=== PATIENT | male | born 1955 | race Caucasian/White ===

== ENCOUNTER 2020-06-14 19:57 | Emergency (ER) | payer MEDICARE, SELFPAY ==
[2020-06-14] VITALS (40 sets, daily range): BP systolic 92–137; BP diastolic 55–92; PULSE 93–127; RESP 12–19; TEMP 35.3–35.7; O2SAT 95–100
--- NOTE | 2020-06-14 19:59 | DI.RAD.S_ITS ---
PROCEDURE: XR CHEST 1V INDICATIONS: fall, trauma, preop TECHNIQUE: One view of the chest was acquired. COMPARISON: None. FINDINGS: Surgical changes and devices: ETT tip is within proximal right mainstem bronchus, should be pulled back by 9 cm. Enteric tube tip is below the left hemidiaphragm and is in the region of stomach lumen. Postsurgical changes are seen in right hilar region. Lungs and pleura: Large airspace opacity projecting over left upper to midlung zone is seen measures 15 x 12 cm in size which could represent large anterior chest wall hematoma versus large left lung mass. No pleural effusion. No obvious pneumothorax. Mediastinum: Mediastinal contours appear normal. Heart size is normal. Bones and chest wall: No suspicious bony lesions. Overlying soft tissues appear unremarkable. IMPRESSION: 1. ET tube tip appears to be within the right mainstem bronchus, should be pulled back by 9 cm. Postsurgical changes seen in right hilar region. 2. Large oval opacity projecting over left upper to mid lung field concerning for large left lung mass versus lesion anterior to left chest wall, suggest clinical correlation. 3. No gross pneumothorax. No pleural effusion. Dictated by: Prabhakar Hill M.D. on 06/14/2020 at 20:41 Approved by: Prabhakar Hill M.D. on 06/14/2020 at 20:46
[2020-06-14 20:18] LABS: Fractionated Inspired Oxygen 100; HCO3 ABG 10 mmol/L (22-26); Oxygen Saturation ABG 100 % (95-100); PCO2 ABG 36.7 mmHg (35-45); TCO2 ABG 11 mmol/L (21-31)
[2020-06-14 20:19] LABS: PO2 ABG 520 mmHg (80-100); pH ABG 7.04 (7.35-7.45)
[2020-06-14 20:30] LABS: Hematocrit 25.9 % (41-53); Mean Corpuscular HGB Conc 30.8 % (30-36); Mean Corpuscular Hemoglobin 31.2 PG (26-34); Mean Corpuscular Volume 101.1 fL (80-100); Platelet Count 400 X10^3/uL (150-400); Red Blood Cell Count 2.56 X10^6/uL (4.5-5.9); Red Cell Distribution Width 17.9 % (11.6-14.8); White Blood Cell Count 26.5 X10^3/uL (4.5-11.0)
[2020-06-14 20:31] LABS: Add Manual Diff / Slide Review YES
[2020-06-14] MEDS: SODIUM CHLORIDE 0.9% 1,000 ML 1000 ML IV (20:36)
--- NOTE | 2020-06-14 20:37 | PC.NURSE ---
OGT placed with return of small amt (<100 mls) dark red secretions, suspicious for GIB. Dr Villatoro made aware
[2020-06-14 20:40] LABS: Creatine Kinase 138 U/L (55-170)
[2020-06-14 20:44] LABS: Appearance Urine UA CLOUDY; Bilirubin Urine UA 2+ (NEGATIVE); Color Urine UA ORANGE; Glucose Urine UA TRACE g/dL (Negative); Ketones Urine UA TRACE (NEGATIVE); Leukocyte Esterase Urine UA TRACE (NEGATIVE); Nitrite Urine UA POSITIVE (Negative); Occult Blood Urine UA TRACE-LYSED (Negative); Protein Urine UA 1+ (Negative); Specific Gravity Urine UA 1.025 (1.000-1.035); Urobilinogen Urine UA >=8.0 E.U./dL (0.2)
[2020-06-14 20:52] LABS: Ictotest Urine Positive (Negative)
[2020-06-14 20:53] LABS: Troponin I 0.023 ng/mL (0.01-0.034)
[2020-06-14 20:55] LABS: Albumin Globulin Ratio 0.9 (1.0-2.8); Alkaline Phosphatase 348 U/L (38-126); Aspartate Aminotransferase 287 IU/L (17-59); BUN Creatinine Ratio 31.3 (6-22); Bilirubin Total 5.1 mg/dL (0.2-1.3); Blood Urea Nitrogen 41 mg/dL (9-20); Calcium 8.5 mg/dL (8.4-10.2); Carbon Dioxide 11 mmol/L (22-32); Chloride 98 mmol/L (98-107); Estimated Glomerular Filt Rate 55.3 mL/min (>60); Globulin 3.3 g/dL (1.7-4.1); Glucose 113 mg/dL (80-110); HEMOLYSIS < 15 (0-50); Lipase 297 U/L (23-300); Sodium 132 mmol/L (137-145); Total Protein 6.3 g/dL (6.3-8.2)
[2020-06-14 20:56] LABS: CKMB % Relative Index 0.6 % (1.5-5.0); Creatine Kinase MB 0.82 ng/mL (<2.37)
[2020-06-14 20:57] LABS: Amorphous Sediment Urine 3+; Bacteria Urine Few (2-10); RBC Urine 0-1/HPF (0-5/HPF); Squamous Epithelial Cell Urine 0-1 /HPF (0-5/HPF); WBC Urine 1-5/HPF (0-5/HPF)
[2020-06-14 20:58] LABS: Culture Indicated Urine Specimen Cultured; Mucus Urine 1+ (Negative)
[2020-06-14 20:58] LABS: Potassium 5.6 mmol/L (3.4-5.1)
[2020-06-14 21:01] LABS: Alanine Aminotransferase 57 IU/L (<50)
[2020-06-14 21:03] LABS: NT-proBNP (BNP-Adult 18+) 1770 pg/mL (<125)
[2020-06-14 21:10] LABS: COVID19 -Nasal RAPID Negative (Negative)
[2020-06-14 21:13] LABS: Neutrophils Absolute Manual 21200 /uL (3000-5900); Total Cells Counted 100
[2020-06-14 21:17] LABS: Hypochromasia 2+; Macrocytosis 2+; Polychromasia 2+
--- NOTE | 2020-06-14 21:25 | ED_ITS ---
HPI - Altered Mental Status General Chief Complaint: Weakness Stated Complaint: Altered mental status Time Seen by Provider: 06/14/20 19:57 Source: EMS Mode of arrival: EMS Limitations: no limitations History of Present Illness HPI narrative: 65-year-old male former smoker and heavy drinker with history of lung cancer presents with EMS intubated. He is largely estranged from family, but a drinking ranjan called his daughter 2 days stating that he was acting a bit hot at the local social club. Daughter arrived to find him disheveled and house poorly maintained. She states that he had clearly lost weight and seemed profoundly weak. She encouraged him to take a shower and soon afterwards he collapsed. EMS was called and patient was alert oriented on their arrival and as they loaded him into the ambulance complained of increasing dizziness, lightheadedness and trouble breathing. He was intubated due to hypoxemic respiratory failure. He does not have a known or documented history of liver failure, cirrhosis or GI bleed but family reports a strong history of alcohol abuse. Related Data Home Medications Medication Instructions Recorded Confirmed Unobtainable 06/14/20 06/14/20 Allergies Allergy/AdvReac Type Severity Reaction Status Date / Time No Allergy Information Allergy Verified 06/14/20 20:33 Available Review of Systems Review of Systems ROS Unobtainable: Unobtainable due to mental status/LOC Patient History Social History Smoking Status: Former smoker Smoking Status: Former smoker alcohol intake frequency: 3 or more drinks per day Substance Use Type: does not use Exam Narrative Exam Narrative: GENERAL: [65] year old patient appears older than stated age. Intubated, jaundiced, appears profoundly ill HEAD: Atraumatic. Normocephalic. EYES: Scleral icterus Pupils equal round and reactive. Extraocular motions intact. ENT: Nose without bleeding, purulent drainage. Throat without erythema, tonsillar hypertrophy or exudate. Airway patent. NECK: Trachea midline. Non tender CARDIOVASCULAR: Regular rate and rhythm without murmurs, gallops, or rubs. RESPIRATORY: Clear to auscultation. Breath sounds equal bilaterally. No wheezes, rales, or rhonchi. GASTROINTESTINAL: Abdomen soft, non-tender, nondistended. EXTREMITIES: No edema or joint tenderness. BACK: Nontender without deformity or crepitance. No flank tenderness. NEURO: Sedated on vent. SKIN: No rash or erythema of visible areas Initial Vital Signs Initial Vital Signs: Vital Signs Temperature 96.3 F L 06/14/20 19:58 Pulse Rate 127 H 06/14/20 19:58 Respiratory Rate 12 06/14/20 19:58 Blood Pressure 137/92 H 06/14/20 19:58 Pulse Oximetry 100 06/14/20 19:58 Course Orders Ordered: ED Orders 06/14/20 19:58 COVID19 -Nasal swab/Pre-Proc Stat 06/14/20 19:59 XR chest 1V Stat EKG-12 Lead Stat 06/14/20 20:09 Arterial Blood Gas Stat 06/14/20 20:15 Complete Blood Count AUTO DIFF Stat Pathologist Review (for CBC) Stat 06/14/20 20:19 Comprehensive Metabolic Panel Stat Lipase Stat Magnesium Stat NT-proBNP (BNP-Adult 18+) Stat Troponin & CK Cardiac Panel Stat 06/14/20 20:20 Ictotest Urine Stat Urinalysis and Microscopic Stat Urine Culture Stat 06/14/20 20:40 COVID19 - ADMIT ([employer] swab/PCR) Stat 06/14/20 21:23 XR chest 1V Stat 06/14/20 21:45 Lactate (Lactic Acid) Stat Packed Cells Stat Type and Screen Stat 06/14/20 22:05 Prothrombin Time INR Stat 06/14/20 22:40 Hematocrit Stat Hemoglobin Stat 06/14/20 23:17 CT chest abd pel w con Stat CT head/brain wo con Stat 06/14/20 23:40 Blood Culture Stat Pantoprazole Sodium 80 mg/ (Sodium Chloride) 100 mls @ 10 mls/hr IV CONT PJ Last Admin: 06/14/20 22:34 Dose: 8 mg/hr, 10 mls/hr Documented by: RANI Octreotide Acetate 500 mcg/ (Sodium Chloride) 101 mls @ 5.05 mls/hr IV CONT PJ; Protocol Last Admin: 06/14/20 22:34 Dose: 25 mcg/hr, 5.05 mls/hr Documented by: RANI Discontinued Medications Sodium Chloride (Normal Saline 0.9%) 1,000 mls @ 1,000 mls/hr IV BOLUS ONE Stop: 06/14/20 20:57 Last Infusion: 06/15/20 00:53 Dose: 0 mls/hr Documented by: Admin: 06/14/20 20:36 Dose: 1,000 mls/hr Documented by: RANI Ceftriaxone Sodium/Dextrose (Rocephin) 2 gm in 50 mls @ 100 mls/hr IV NOW ONE Stop: 06/14/20 22:43 Last Infusion: 06/14/20 23:27 Dose: 0 mls/hr Documented by: Admin: 06/14/20 22:33 Dose: 100 mls/hr Documented by: RANI Octreotide Acetate (Octreotide 100 Mcg/Ml Vial) 50 mcg IV NOW ONE Stop: 06/14/20 22:15 Last Admin: 06/14/20 22:23 Dose: 50 mcg Documented by: RANI Pantoprazole Sodium (Pantoprazole 40 Mg Vial) 80 mg IV NOW ONE Stop: 06/14/20 22:15 Last Admin: 06/14/20 22:24 Dose: 80 mg Documented by: RANI Reevaluation(s) Reevaluation #1: Patient continues to be hemodynamically stable, OG placed and dark blood, and small volumes but consistent with upper GI bleed. Patient still requiring no sedation Consultations Consultation #1: First call to [facility], no appropriate beds Consultation #2: call to [facility], Dr. Koroma happy to accept. We agree that advanced imaging is highly unlikely to contribute information which will change the plan. EMS to arrive at about 0130. Vital Signs Vital signs: Vital Signs - 8 hr 06/14/20 19:58 06/14/20 20:01 06/14/20 20:05 Temperature 96.3 F L Pulse Rate 127 H 112 H 109 H Respiratory Rate 12 17 Blood Pressure 137/92 H 137/92 H Pulse Oximetry 100 98 06/14/20 20:10 06/14/20 20:15 06/14/20 20:17 Temperature Pulse Rate 109 H 109 H 109 H Respiratory Rate 16 16 16 Blood Pressure 125/80 Pulse Oximetry 100 100 97 06/14/20 20:20 06/14/20 20:25 06/14/20 20:30 Temperature 95.5 F L 95.7 F L Pulse Rate 110 H 107 H 105 H Respiratory Rate 16 17 16 Blood Pressure 132/85 136/90 133/86 Pulse Oximetry 98 97 97 06/14/20 20:35 06/14/20 20:40 06/14/20 20:45 Temperature 96.1 F L 96.1 F L 96.3 F L Pulse Rate 105 H 105 H 104 H Respiratory Rate 16 16 16 Blood Pressure 125/84 127/82 137/76 Pulse Oximetry 97 97 97 06/14/20 20:50 06/14/20 22:05 06/14/20 22:10 Temperature 96.3 F L 95.9 F L Pulse Rate 104 H 102 H Respiratory Rate 16 19 Blood Pressure 125/86 112/75 116/80 Pulse Oximetry 96 97 06/14/20 22:15 06/14/20 22:20 06/14/20 22:25 Temperature 95.9 F L 95.9 F L 96.1 F L Pulse Rate 102 H 101 H 101 H Respiratory Rate 16 16 16 Blood Pressure 116/71 113/66 Pulse Oximetry 98 98 97 06/14/20 22:26 06/14/20 22:30 06/14/20 22:35 Temperature Pulse Rate 100 H 100 H 100 H Respiratory Rate 16 17 Blood Pressure 123/58 L 128/58 L Pulse Oximetry 97 97 98 06/14/20 22:37 06/14/20 22:40 06/14/20 22:45 Temperature Pulse Rate 97 H 96 H 98 H Respiratory Rate 16 Blood Pressure 109/70 108/68 111/62 Pulse Oximetry 98 97 97 06/14/20 22:50 06/14/20 22:55 06/14/20 23:00 Temperature 95.9 F L Pulse Rate 98 H 99 H 99 H Respiratory Rate 16 16 16 Blood Pressure 108/69 109/67 109/75 Pulse Oximetry 97 97 97 06/14/20 23:05 06/14/20 23:10 06/14/20 23:15 Temperature Pulse Rate 99 H 98 H 97 H Respiratory Rate 16 16 12 Blood Pressure 107/70 115/69 113/68 Pulse Oximetry 97 96 97 06/14/20 23:20 06/14/20 23:25 06/14/20 23:30 Temperature Pulse Rate 97 H 98 H 97 H Respiratory Rate 16 16 16 Blood Pressure 100/66 106/56 L 106/60 Pulse Oximetry 97 97 97 06/14/20 23:35 06/14/20 23:40 06/14/20 23:45 Temperature 96.3 F L Pulse Rate 97 H 97 H 97 H Respiratory Rate 13 16 16 Blood Pressure 106/61 99/55 L 92/68 Pulse Oximetry 96 96 06/14/20 23:50 06/14/20 23:52 06/14/20 23:55 Temperature 96.3 F L Pulse Rate 97 H 97 H 97 H Respiratory Rate 16 16 16 Blood Pressure 97/64 105/68 Pulse Oximetry 95 96 97 06/15/20 00:00 06/15/20 00:05 06/15/20 00:09 Temperature 96.4 F L Pulse Rate 97 H 97 H 97 H Respiratory Rate 16 16 16 Blood Pressure 101/71 98/67 104/73 Pulse Oximetry 97 97 06/15/20 00:10 06/15/20 00:15 06/15/20 00:20 Temperature Pulse Rate 97 H 97 H 97 H Respiratory Rate 16 16 16 Blood Pressure 104/73 101/69 103/64 Pulse Oximetry 97 97 97 06/15/20 00:25 06/15/20 00:30 06/15/20 00:35 Temperature Pulse Rate 97 H 97 H 97 H Respiratory Rate 16 16 16 Blood Pressure 100/60 104/57 L 109/55 L Pulse Oximetry 97 97 97 06/15/20 00:40 06/15/20 00:45 06/15/20 00:50 Temperature Pulse Rate 96 H 96 H 96 H Respiratory Rate 16 16 16 Blood Pressure 112/58 L 121/62 Pulse Oximetry 97 97 97 06/15/20 00:55 06/15/20 01:12 06/15/20 01:14 Temperature 96.6 F L 96.6 F L Pulse Rate 96 H 96 H 96 H Respiratory Rate 16 16 Blood Pressure 119/61 Pulse Oximetry 97 MDM - Altered Mental Status Lab Data Result diagrams: 06/14/20 20:15 06/14/20 20:19 Labs: Lab Results 06/14/20 06/14/20 06/14/20 Range/Units 19:58 20:09 20:15 WBC 26.5 H (4.5-11.0) X10^3/uL RBC 2.56 L (4.5-5.9) X10^6/uL Hgb 8.0 L (13.5-17.5) g/dL Hct 25.9 L (41-53) % MCV 101.1 H (80-100) fL MCH 31.2 (26-34) PG MCHC 30.8 (30-36) % RDW 17.9 H (11.6-14.8) % Plt Count 400 (150-400) X10^3/uL Neut % (Auto) Not Reportable Lymph % (Auto) Not Reportable [place] % (Auto) Not Reportable Eos % (Auto) Not Reportable Baso % (Auto) Not Reportable Lymph # (Auto) Not Reportable [place] # (Auto) Not Reportable Baso # (Auto) Not Reportable Total Counted 100 Seg Neutrophils % 72.0 H (38-70) % Band Neutrophils % 8.0 H (3-7) % Lymphocytes % (Manual) 7.0 L (25-45) % Monocytes % (Manual) 7.0 (2-11) % Metamyelocytes % 4.0 H (-0) % Myelocytes % 2.0 H (-0) % Neutrophils # (Manual) 38453 H (0416-6444) /uL RBC Morphology See below Polychromasia 2+ H Hypochromasia 2+ H Macrocytosis 2+ H PT (10.1-12.7) SECONDS INR (0.9-1.3) ABG pH 7.04 L* (7.35-7.45) ABG pCO2 36.7 (35-45) mmHg ABG pO2 520 H* (80-100) mmHg ABG HCO3 10 L (22-26) mmol/L ABG Total CO2 11 L (21-31) mmol/L ABG O2 Saturation 100 (95-100) % ABG Base Excess -21.0 L (-2-2) mmol/L FiO2 100 Sodium (137-145) mmol/L Potassium (3.4-5.1) mmol/L Chloride (98-107) mmol/L Carbon Dioxide (22-32) mmol/L BUN (9-20) mg/dL Creatinine (0.66-1.25) mg/dL Estimated GFR (>60) mL/min BUN/Creatinine Ratio (6-22) Glucose (80-110) mg/dL Lactate (0.7-2.1) mmol/L Calcium (8.4-10.2) mg/dL Magnesium (1.6-2.3) mg/dL Total Bilirubin (0.2-1.3) mg/dL AST (17-59) IU/L ALT (<50) IU/L Alkaline Phosphatase (38-126) U/L Total Creatine Kinase (55-170) U/L CK-MB (CK-2) (<2.37) ng/mL CK-MB (CK-2) Rel Index (1.5-5.0) % Troponin I (0.01-0.034) ng/mL NT-Pro-B Natriuret Pep (<125) pg/mL Total Protein (6.3-8.2) g/dL Albumin (3.5-5.0) g/dL Globulin (1.7-4.1) g/dL Albumin/Globulin Ratio (1.0-2.8) Lipase (23-300) U/L Urine Color Urine Appearance Urine pH (4.5-8.0) Ur Specific [place] (1.000-1.035) Urine Protein (Negative) Urine Glucose (UA) (Negative) g/dL Urine Ketones (NEGATIVE) Urine Occult Blood (Negative) Urine Nitrate (Negative) Urine Bilirubin (NEGATIVE) Ur Bilirubin Confirm (Negative) Urine Urobilinogen (0.2) E.U./dL Ur Leukocyte Esterase (NEGATIVE) Urine RBC (0-5/HPF) Urine WBC (0-5/HPF) Ur Squamous Epith Cells (0-5/HPF) Amorphous Sediment Urine Bacteria (None) Urine Mucus (Negative) Ur Culture Indicated? SARS-CoV-2 (PCR) Negative (Negative) Blood Type Antibody Screen Crossmatch 06/14/20 06/14/20 06/14/20 Range/Units 20:19 20:19 20:20 WBC (4.5-11.0) X10^3/uL RBC (4.5-5.9) X10^6/uL Hgb (13.5-17.5) g/dL Hct (41-53) % MCV (80-100) fL MCH (26-34) PG MCHC (30-36) % RDW (11.6-14.8) % Plt Count (150-400) X10^3/uL Neut % (Auto) Lymph % (Auto) [place] % (Auto) Eos % (Auto) Baso % (Auto) Lymph # (Auto) [place] # (Auto) Baso # (Auto) Total Counted Seg Neutrophils % (38-70) % Band Neutrophils % (3-7) % Lymphocytes % (Manual) (25-45) % Monocytes % (Manual) (2-11) % Metamyelocytes % (-0) % Myelocytes % (-0) % Neutrophils # (Manual) (5258-3795) /uL RBC Morphology Polychromasia Hypochromasia Macrocytosis PT (10.1-12.7) SECONDS INR (0.9-1.3) ABG pH (7.35-7.45) ABG pCO2 (35-45) mmHg ABG pO2 (80-100) mmHg ABG HCO3 (22-26) mmol/L ABG Total CO2 (21-31) mmol/L ABG O2 Saturation (95-100) % ABG Base Excess (-2-2) mmol/L FiO2 Sodium 132 L (137-145) mmol/L Potassium 5.6 H (3.4-5.1) mmol/L Chloride 98 (98-107) mmol/L Carbon Dioxide 11 L (22-32) mmol/L BUN 41 H (9-20) mg/dL Creatinine 1.31 H (0.66-1.25) mg/dL Estimated GFR 55.3 L (>60) mL/min BUN/Creatinine Ratio 31.3 H (6-22) Glucose 113 H (80-110) mg/dL Lactate (0.7-2.1) mmol/L Calcium 8.5 (8.4-10.2) mg/dL Magnesium 3.0 H (1.6-2.3) mg/dL Total Bilirubin 5.1 H (0.2-1.3) mg/dL AST 287 H (17-59) IU/L ALT 57 H (<50) IU/L Alkaline Phosphatase 348 H (38-126) U/L Total Creatine Kinase 138 (55-170) U/L CK-MB (CK-2) 0.82 (<2.37) ng/mL CK-MB (CK-2) Rel Index 0.6 L (1.5-5.0) % Troponin I 0.023 (0.01-0.034) ng/mL NT-Pro-B Natriuret Pep 1770 H (<125) pg/mL Total Protein 6.3 (6.3-8.2) g/dL Albumin 3.0 L (3.5-5.0) g/dL Globulin 3.3 (1.7-4.1) g/dL Albumin/Globulin Ratio 0.9 L (1.0-2.8) Lipase 297 (23-300) U/L Urine Color [place] Urine Appearance Cloudy Urine pH 5.0 (4.5-8.0) Ur Specific [place] 1.025 (1.000-1.035) Urine Protein 1+ H (Negative) Urine Glucose (UA) Trace H (Negative) g/dL Urine Ketones Trace H (NEGATIVE) Urine Occult Blood Trace-lysed (Negative) Urine Nitrate Positive (Negative) Urine Bilirubin 2+ H (NEGATIVE) Ur Bilirubin Confirm Positive H (Negative) Urine Urobilinogen >=8.0 (0.2) E.U./dL Ur Leukocyte Esterase Trace H (NEGATIVE) Urine RBC 0-1/hpf (0-5/HPF) Urine WBC 1-5/hpf (0-5/HPF) Ur Squamous Epith Cells 0-1 /hpf (0-5/HPF) Amorphous Sediment 3+ Urine Bacteria Few (2-10) H (None) Urine Mucus 1+ H (Negative) Ur Culture Indicated? Specimen cultured SARS-CoV-2 (PCR) (Negative) Blood Type Antibody Screen Crossmatch 06/14/20 06/14/20 06/14/20 Range/Units 20:40 21:45 21:45 WBC (4.5-11.0) X10^3/uL RBC (4.5-5.9) X10^6/uL Hgb (13.5-17.5) g/dL Hct (41-53) % MCV (80-100) fL MCH (26-34) PG MCHC (30-36) % RDW (11.6-14.8) % Plt Count (150-400) X10^3/uL Neut % (Auto) Lymph % (Auto) [place] % (Auto) Eos % (Auto) Baso % (Auto) Lymph # (Auto) [place] # (Auto) Baso # (Auto) Total Counted Seg Neutrophils % (38-70) % Band Neutrophils % (3-7) % Lymphocytes % (Manual) (25-45) % Monocytes % (Manual) (2-11) % Metamyelocytes % (-0) % Myelocytes % (-0) % Neutrophils # (Manual) (8023-7153) /uL RBC Morphology Polychromasia Hypochromasia Macrocytosis PT (10.1-12.7) SECONDS INR (0.9-1.3) ABG pH (7.35-7.45) ABG pCO2 (35-45) mmHg ABG pO2 (80-100) mmHg ABG HCO3 (22-26) mmol/L ABG Total CO2 (21-31) mmol/L ABG O2 Saturation (95-100) % ABG Base Excess (-2-2) mmol/L FiO2 Sodium (137-145) mmol/L Potassium (3.4-5.1) mmol/L Chloride (98-107) mmol/L Carbon Dioxide (22-32) mmol/L BUN (9-20) mg/dL Creatinine (0.66-1.25) mg/dL Estimated GFR (>60) mL/min BUN/Creatinine Ratio (6-22) Glucose (80-110) mg/dL Lactate 11.5 H* (0.7-2.1) mmol/L Calcium (8.4-10.2) mg/dL Magnesium (1.6-2.3) mg/dL Total Bilirubin (0.2-1.3) mg/dL AST (17-59) IU/L ALT (<50) IU/L Alkaline Phosphatase (38-126) U/L Total Creatine Kinase (55-170) U/L CK-MB (CK-2) (<2.37) ng/mL CK-MB (CK-2) Rel Index (1.5-5.0) % Troponin I (0.01-0.034) ng/mL NT-Pro-B Natriuret Pep (<125) pg/mL Total Protein (6.3-8.2) g/dL Albumin (3.5-5.0) g/dL Globulin (1.7-4.1) g/dL Albumin/Globulin Ratio (1.0-2.8) Lipase (23-300) U/L Urine Color Urine Appearance Urine pH (4.5-8.0) Ur Specific [place] (1.000-1.035) Urine Protein (Negative) Urine Glucose (UA) (Negative) g/dL Urine Ketones (NEGATIVE) Urine Occult Blood (Negative) Urine Nitrate (Negative) Urine Bilirubin (NEGATIVE) Ur Bilirubin Confirm (Negative) Urine Urobilinogen (0.2) E.U./dL Ur Leukocyte Esterase (NEGATIVE) Urine RBC (0-5/HPF) Urine WBC (0-5/HPF) Ur Squamous Epith Cells (0-5/HPF) Amorphous Sediment Urine Bacteria (None) Urine Mucus (Negative) Ur Culture Indicated? SARS-CoV-2 (PCR) Negative (Negative) Blood Type A Positive Antibody Screen Negative Crossmatch See Detail 06/14/20 Range/Units 22:05 WBC (4.5-11.0) X10^3/uL RBC (4.5-5.9) X10^6/uL Hgb (13.5-17.5) g/dL Hct (41-53) % MCV (80-100) fL MCH (26-34) PG MCHC (30-36) % RDW (11.6-14.8) % Plt Count (150-400) X10^3/uL Neut % (Auto) Lymph % (Auto) [place] % (Auto) Eos % (Auto) Baso % (Auto) Lymph # (Auto) [place] # (Auto) Baso # (Auto) Total Counted Seg Neutrophils % (38-70) % Band Neutrophils % (3-7) % Lymphocytes % (Manual) (25-45) % Monocytes % (Manual) (2-11) % Metamyelocytes % (-0) % Myelocytes % (-0) % Neutrophils # (Manual) (2699-1445) /uL RBC Morphology Polychromasia Hypochromasia Macrocytosis PT 18.9 H (10.1-12.7) SECONDS INR 1.7 H (0.9-1.3) ABG pH (7.35-7.45) ABG pCO2 (35-45) mmHg ABG pO2 (80-100) mmHg ABG HCO3 (22-26) mmol/L ABG Total CO2 (21-31) mmol/L ABG O2 Saturation (95-100) % ABG Base Excess (-2-2) mmol/L FiO2 Sodium (137-145) mmol/L Potassium (3.4-5.1) mmol/L Chloride (98-107) mmol/L Carbon Dioxide (22-32) mmol/L BUN (9-20) mg/dL Creatinine (0.66-1.25) mg/dL Estimated GFR (>60) mL/min BUN/Creatinine Ratio (6-22) Glucose (80-110) mg/dL Lactate (0.7-2.1) mmol/L Calcium (8.4-10.2) mg/dL Magnesium (1.6-2.3) mg/dL Total Bilirubin (0.2-1.3) mg/dL AST (17-59) IU/L ALT (<50) IU/L Alkaline Phosphatase (38-126) U/L Total Creatine Kinase (55-170) U/L CK-MB (CK-2) (<2.37) ng/mL CK-MB (CK-2) Rel Index (1.5-5.0) % Troponin I (0.01-0.034) ng/mL NT-Pro-B Natriuret Pep (<125) pg/mL Total Protein (6.3-8.2) g/dL Albumin (3.5-5.0) g/dL Globulin (1.7-4.1) g/dL Albumin/Globulin Ratio (1.0-2.8) Lipase (23-300) U/L Urine Color Urine Appearance Urine pH (4.5-8.0) Ur Specific [place] (1.000-1.035) Urine Protein (Negative) Urine Glucose (UA) (Negative) g/dL Urine Ketones (NEGATIVE) Urine Occult Blood (Negative) Urine Nitrate (Negative) Urine Bilirubin (NEGATIVE) Ur Bilirubin Confirm (Negative) Urine Urobilinogen (0.2) E.U./dL Ur Leukocyte Esterase (NEGATIVE) Urine RBC (0-5/HPF) Urine WBC (0-5/HPF) Ur Squamous Epith Cells (0-5/HPF) Amorphous Sediment Urine Bacteria (None) Urine Mucus (Negative) Ur Culture Indicated? SARS-CoV-2 (PCR) (Negative) Blood Type Antibody Screen Crossmatch Point of Care Testing Glucose POC 130 Imaging Data Chest x-ray: Radiologist's Impression: [address] [id number] ReportSigned Patient: Shorty Lynn LMR#: [id number]: 8Acct:[id number]/Sex: 65 / MDate of Service: 06/14/20Loc: EDAccession Number: [id number] Procedure: XR chest 1V Ordering Provider: Sanya Villatoro D.O. PROCEDURE: XR CHEST 1V INDICATIONS: fall, trauma, preop TECHNIQUE: One view of the chest was acquired. COMPARISON: None. FINDINGS: Surgical changes and devices: ETT tip is within proximal right mainstem bronchus, should be pulled back by 9 cm. Enteric tube tip is below the left hemidiaphragm and is in the region of stomach lumen. Postsurgical changes are seen in right hilar region. Lungs and pleura: Large airspace opacity projecting over left upper to midlung zone is seen measures 15 x 12 cm in size which could represent large anterior chest wall hematoma versus large left lung mass. No pleural effusion. No obvious pneumothorax. Mediastinum: Mediastinal contours appear normal. Heart size is normal. Bones and chest wall: No suspicious bony lesions. Overlying soft tissues appear unremarkable. IMPRESSION: 1. ET tube tip appears to be within the right mainstem bronchus, should be pulled back by 9 cm. Postsurgical changes seen in right hilar region. 2. Large oval opacity projecting over left upper to mid lung field concerning for large left lung mass versus lesion anterior to left chest wall, suggest clinical correlation. 3. No gross pneumothorax. No pleural effusion. Dictated by: Prabhakar Hill M.D. on 06/14/2020 at 20:41 Approved by: Prabhakar Hill M.D. on 06/14/2020 at 20:46 Shorty Lynn 65 M [address] [id number] ReportSigned Patient: Shorty Lynn R#: [id number]: 8Acct:[id number]/Sex: 65 / MDate of Service: 06/14/20Loc: EDAccession Number: [id number] Procedure: XR chest 1V Ordering Provider: Sanya Villatoro D.O. PROCEDURE: XR CHEST 1V INDICATIONS: line placement TECHNIQUE: One view of the chest was acquired. COMPARISON: [facility], , XR CHEST 1V, 06/14/2020, 20:24. FINDINGS: Surgical changes and devices: Right internal jugular central venous catheter ti p is in SVC. ET tube tip remains within proximal right mainstem bronchus should be pulled back by 5-6 cm. NG tube tip is in the region of stomach lumen below the left hemidiaphragm. Postsurgical changes are again seen in right hilar region. Lungs and pleura: Persistent large oval masslike consolidation projecting over left lung field is again seen unchanged from earlier study. No gross pneumothorax. No pleural effusions or pneumothorax. Mediastinum: Mediastinal contours appear normal. Heart size is normal. Bones and chest wall: No suspicious bony lesions. Overlying soft tissues appear unremarkable. IMPRESSION: Right internal jugular central venous catheter tip is projecting in the region of upper SVC at the level of medial right clavicle. ETT tip again appears to be in the region of right proximal mainstem bronchus should be pulled back by 5-6 cm. No gross pneumothorax. Persistent large masslike consolidation projecting over left lung field. Dictated by: Prabhakar Hill M.D. on 06/14/2020 at 21:46 Approved by: Prabhakar Hill M.D. on 06/14/2020 at 21:48 MDM Narrative Medical decision making narrative: Little is known about 65-year-old male who was obviously chronically and critically ill. Patient has extensive history of alcohol abuse but no known history of GI bleed. Patient is stable but remains in a very guarded condition and requires transfer to [place] for possible access to GI and overall higher level of care. Family understands the severity of the circumstances and recognizes that he very well may not make it through this hospitalization. Patient has been given Protonix, octreotide, blood is ordered. He is received no sedating medications since the rapid sequence intubation by paramedics. Chest x-ray demonstrates an endotracheal tube in the right mainstem, I have elected to leave this in place given his respiratory stability and the presence of a very large mass in his left lung and it is unknown if there is any bronchial involvement. Daughter (Morena burgos POA [phone]) has been at bedside and understands and is in agreement with the plan. Patient does meet criteria for severe sepsis, but there are some delays in obtaining cultures and ability to administer ABX due to trouble with access. Furthermore, given the obvious GI bleed I did not give 30mL/kg of fluids to allow permissive hypotension Critical Care Time Critical Care Time Critical Care Time: Yes Total Critical Care Time: 35 Attestation: The high probability of a clinically significant, sudden or life threatening deterioration of the [CV] system(s) required my full and direct attention, intervention and personal management. The aggregate critical care time was [30] minutes. This time is in addition to time spent performing reported procedures but includes the following: [x] Data Review and interpretation [x] Patient assessment and monitoring of vital signs [x] Documentation [x] Medication orders and management Discharge Plan Departure Patient Disposition: [facility] Clinical Impression: Acute hypoxemic respiratory failure, Anemia, Acute upper gastrointestinal bleeding Prescriptions: No Action Unobtainable RF: 0 Referrals: Aditya Garcia DO [Primary Care Provider] -
[2020-06-14 21:39] LABS: COVID19 - ADMIT (NP swab/PCR) Negative (Negative)
[2020-06-14 22:20] LABS: Lactate (Lactic Acid) 11.5 mmol/L (0.7-2.1)
[2020-06-14] MEDS: OCTREOTIDE 100 MCG/ML VIAL 50 MCG IV (22:23)
[2020-06-14 22:24] LABS: INR 1.7 (0.9-1.3); Prothrombin Time 18.9 SECONDS (10.1-12.7)
[2020-06-14] MEDS: PANTOPRAZOLE 40 MG VIAL 80 MG IV (22:24)
[2020-06-14] MEDS: CEFTRIAXONE 2 GM/50 ML FROZ.PIGGY IV (22:33)
[2020-06-14] MEDS: OCTREOTIDE 500 MCG in SODIUM CHLORIDE 0.9% 100 ML 5.05 ML IV (22:34)
[2020-06-14] MEDS: PANTOPRAZOLE 80 MG in SODIUM CHLORIDE 0.9% 100 ML 10 ML IV (22:34)
--- NOTE | 2020-06-14 23:27 | PC.NURSE ---
After three attempts at central line insertion, Dr Villatoro placed 18g PIV to left EJ.
[2020-06-14 23:53] LABS: Reflexed Lactate in 2 Hours Y
[2020-06-15] VITALS (26 sets, daily range): BP systolic 98–121; BP diastolic 55–73; PULSE 96–98; RESP 16; TEMP 35.8–36; O2SAT 96–97
--- NOTE | 2020-06-15 00:55 | PC.NURSE ---
Pt remains unresponsive. R pupil briskly reactive to light, L pupil sluggishly reactive. Octreotide and protonix drips infusing. OGT draining small amounts dark red gastric secretions to LIS. Skin mottling noted to posterior surfaces. Core temp remains low 96 degrees despite Frieda hugger. IO to R tibia removed and dressing placed.
--- NOTE | 2020-06-15 01:18 | PC.NURSE ---
2nd unit PRBC's now infusing.
== END 2020-06-15 02:13 | disposition short-term general hospital (02) ==
PROVIDERS: Emergency Provider Emergency Medicine; Family Provider Internal Medicine; PCP Internal Medicine
DX: J96.01 Acute respiratory failure with hypoxia (principal); D64.9 Anemia, unspecified; K92.2 Gastrointestinal hemorrhage, unspecified
CPT/HCPCS: 36415; 36430; 36600; 51701; 71045; 80053; 81001; 82550; 82553; 82805; 82962; 83605; 83690; 83735; 83880; 84484; 85007; 85025; 85610; 86850; 86900; 86901; 87040; 87086; 87635; 93005; 94002; 96361; 96365; 96366; 96367; 96368; 99285; 99291; 99292; C9803; P9016; C9113; J0696; J2354